=== PATIENT | female | born 1960 | race Caucasian/White ===

== ENCOUNTER 2017-09-09 20:48 | Emergency (ER) | payer BC ==
[~2017-09-09] VITALS: Ht 157.5 cm; Wt 59.3 kg
[2017-09-09 20:50] VITALS: TEMP 36.7; Ht 157.5 cm; Wt 59.3 kg
[2017-09-09] MEDS ORDERED: PROAIR HFA INH (21:00)
[2017-09-09] MEDS ORDERED: IBUP-1050 PO (21:00)
[2017-09-09] MEDS ORDERED: DIPH25CA5 PO (21:00)
[2017-09-09] MEDS ORDERED: OXYCODONE/ACETAMINOPHEN 5-325 TAB PO STA (21:07)
[2017-09-09] MEDS ORDERED: IBUPROFEN 600 MG TAB PO STA (21:07)
[2017-09-09 21:40] LABS: BASO % 0.3 %; BASO ABS # 0.03 K/uL (0-0.2); EOS % 2.2 %; EOS ABS # 0.26 K/uL (0-0.5); HEMATOCRIT 39.1 % (37-47); HEMOGLOBIN 13.6 g/dL (12.0-16.0); IG# 0.02 K/uL (0.00-0.02); LYMPH ABS # 1.86 K/uL (1.2-3.4); MEAN CELL VOLUME 84.4 fL (80-100); MEAN CORPUSCULAR HEMOGLOBIN 29.4 pg (25-34); MEAN CORPUSCULAR HGB CONC 34.8 g/dl (32-36); MEAN PLATELET VOLUME 8.9 fL (7.4-10.4); MONO % 13.6 %; MONO ABS # 1.58 K/uL (0.11-0.59); NEUT % 67.7 %; NEUT ABS # 7.86 K/uL (1.4-6.5); PLATELET COUNT 308 K/uL (130-400); RED CELL DISTRIBUTION WIDTH CV 13.9 % (11.5-14.5); RED CELL DISTRIBUTION WIDTH SD 42.8 fL (36.4-46.3); WHITE BLOOD COUNT 11.61 K/uL (4.8-10.8)
[2017-09-09] MEDS ORDERED: XYLOCAINE 1%/SOD BICARB 20 ML VIAL INFIL ONE (21:45)
--- NOTE | 2017-09-09 21:47 | EMERGENCY ROOM VISIT NOTE ---
History First contact with patient: 20:58 Chief Complaint: KNEEPAIN Stated Complaint: RT KNEE SWELLING History of Present Illness The patient is a 56 year old female who presents to the Emergency Room with complaints of severe pain and swelling of the right knee for the last 2 weeks. The patient remembers standing up from the bed and feeling a small pop. She has had some discomfort since. It did not swell right away. Patient has tried ibuprofen with minimal relief of the pain. She denies any previous injury to the knee. She has pain with any movement and weightbearing. No fever or chills. No insect bites. She denies any other joint pain. Review of Systems 10 system review performed and negative unless noted in HPI or below Past Medical/Surgical History Seasonal allergies Social History Smoking Status: Current Every Day Smoker Current/Historical Medications Scheduled Diphenhydramine Hcl (Benadryl), 25 MG PO HS Doxycycline (Monohydrate) (Doxycycline), 1 TAB PO BID Ondasetron Odt (Zofran Odt), 4 MG SL Q6H Scheduled PRN Ibuprofen (Advil), 600 MG PO Q4 PRN for Pain Oxycodone/Acetaminophen 5MG/325MG (Percocet 5MG/325MG), 1-2 TABS PO Q4H PRN for Pain [Proair Hfa], 2 PUFF INH Q4 PRN for SOB/Wheezing Physical Exam Vital Signs Date Time Temp Pulse Resp B/P (MAP) Pulse Ox O2 Delivery O2 Flow Rate FiO2 09/10/17 00:18 82 20 117/69 94 Room Air 09/09/17 23:18 87 20 103/53 95 Room Air 09/09/17 20:50 36.7 113 20 132/70 97 Room Air Physical Exam VITALS: Vitals are noted on the nurse's note and reviewed by myself. Vital signs stable. GENERAL: 56-year-old female, in no acute distress, nondiaphoretic, well- developed well-nourished. SKIN: The skin was intact. HEAD: Normocephalic atraumatic. NECK: Supple, trachea midline, HEART: Regular rate and rhythm without murmurs gallops or rubs. LUNGS: Clear to auscultation bilaterally without wheezes, rales or rhonchi. No accessory muscle use. MUSCULOSKELETAL: RIGHT LOWER EXTREMITY: Diffuse edema surrounding the right knee. Pain with flexion beyond 45. The patient is unable to completely extend. She is able to raise the leg off the bed. Patellar tendon is intact. Mild warmth noted diffusely. No erythema. No breaks in the skin. NEURO: Patient was alert and oriented to person place and time. Normal sensation to touch. No focal neurological deficits. Medical Decision & Procedures ER Provider Diagnostic Interpretation: R knee xray IMPRESSION: Soft tissue swelling and a moderate knee effusion. No fractures. Electronically signed by: Cory Berkowitz M.D. 09/09/2017 10:38 PM IMPRESSION: No DVT within the right lower extremity Electronically signed by: Cory Berkowitz M.D. 09/09/2017 11:03 PM Dictated Date/Time: 09/09/2017 11:02 PM R leg US Laboratory Results 09/09/17 21:31 Red Blood Count 4.63, Mean Corpuscular Volume 84.4, Mean Corpuscular Hemoglobin 29.4, Mean Corpuscular Hemoglobin Concent 34.8, Mean Platelet Volume 8.9, Neutrophils (%) (Auto) 67.7, Lymphocytes (%) (Auto) 16.0, Monocytes (%) (Auto) 13.6, Eosinophils (%) (Auto) 2.2, Basophils (%) (Auto) 0.3, Neutrophils # (Auto ) 7.86, Lymphocytes # (Auto) 1.86, Monocytes # (Auto) 1.58, Eosinophils # (Auto ) 0.26, Basophils # (Auto) 0.03 09/09/17 21:31 Test 09/09/17 21:31 09/09/17 22:20 White Blood Count 11.61 K/uL (4.8-10.8) Red Blood Count 4.63 M/uL (4.2-5.4) Hemoglobin 13.6 g/dL (12.0-16.0) Hematocrit 39.1 % (37-47) Mean Corpuscular Volume 84.4 fL (80-100) Mean Corpuscular Hemoglobin 29.4 pg (25-34) Mean Corpuscular Hemoglobin Concent 34.8 g/dl (32-36) Platelet Count 308 K/uL (130-400) Mean Platelet Volume 8.9 fL (7.4-10.4) Neutrophils (%) (Auto) 67.7 % Lymphocytes (%) (Auto) 16.0 % Monocytes (%) (Auto) 13.6 % Eosinophils (%) (Auto) 2.2 % Basophils (%) (Auto) 0.3 % Neutrophils # (Auto) 7.86 K/uL (1.4-6.5) Lymphocytes # (Auto) 1.86 K/uL (1.2-3.4) Monocytes # (Auto) 1.58 K/uL (0.11-0.59) Eosinophils # (Auto) 0.26 K/uL (0-0.5) Basophils # (Auto) 0.03 K/uL (0-0.2) RDW Standard Deviation 42.8 fL (36.4-46.3) RDW Coefficient of Variation 13.9 % (11.5-14.5) Immature Granulocyte % (Auto) 0.2 % Immature Granulocyte # (Auto) 0.02 K/uL (0.00-0.02) Erythrocyte Sedimentation Rate 46 mm/hr (0-21) Anion Gap 5.0 mmol/L (3-11) Est Creatinine Clear Calc Drug Dose 71.0 ml/min Estimated GFR () 112.3 Estimated GFR (Non- 96.9 BUN/Creatinine Ratio 15.7 (10-20) Uric Acid 2.4 mg/dl (2.6-7.2) Calcium Level 8.5 mg/dl (8.5-10.1) C-Reactive Protein 7.25 mg/dl (0-0.29) Procalcitonin 0.09 ng/ml (0-0.5) Lyme Disease IgG Antibody POS (NEG) Synovial Fluid Source KNEE Synovial Fluid Color HILLARY Synovial Fluid Appearance CLOUDY Synovial Fluid WBC 54626 /uL (0-200) Synovial Fluid RBC 78767 /uL Synovial Fluid Polynuclear WBCs % 89.0 % Synovial Fluid Mononuclear WBCs % 11.0 % Synovial Fluid Glucose 51 mg/dl Synovial Fluid Total Protein 4 g/dl Synovial Fluid Uric Acid 2.7 mg/dl Medications Administered Medications (Trade) Dose Ordered Sig/Levi Route Start Time Stop Time Status Last Admin Dose Admin Oxycodone/ Acetaminophen (Percocet 5-325mg Tab) 1 tab NOW STAT PO 09/09/17 21:07 09/09/17 21:10 DC 09/09/17 21:52 1 TAB Ibuprofen (Motrin Tab) 600 mg ONE STAT PO 09/09/17 21:07 09/09/17 21:10 DC 09/09/17 21:52 600 MG Ceftriaxone Sodium (Rocephin Inj) 1 gm NOW STAT IV 09/09/17 23:30 09/09/17 23:31 DC 09/09/17 23:46 1 GM Morphine Sulfate (MoRPHine SULFATE INJ) 4 mg ONE STAT IV 09/09/17 23:30 09/09/17 23:31 DC 09/09/17 23:45 4 MG Procedure Procedure: Knee effusion, arthrocentesis I did discuss the risks and benefits of the procedure with the patient. They have consented. The right knee was prepped with Betadine in a sterile fashion. 2 mL of 1% lidocaine was injected to the medial superior margin of the patella. Approximately 30 mL of a turbid straw-colored fluid was aspirated. Patient's knee was cleansed and dressed with a Band-Aid. She tolerated the procedure well. ED Course Patient was seen and examined Vital signs including blood pressure were reviewed medications list was verified with patient Labs were obtained, and a saline lock was established The patient was medicated with Percocet and ibuprofen. An arthrocentesis of the right knee was performed. Please see my procedure note. Upon reassessment, the patient was still complaining of pain. She was medicated with 4 mg of morphine IV. We discussed her workup. She voiced understanding. Patient was given 1 dose of ceftriaxone I reviewed discharge instructions the patient. They voiced understanding and had no further questions. Medical Decision Differential diagnosis: Lyme arthritis, septic joint, hemarthrosis, ligamentous injury, gout, rheumatoid arthritis This patient is a 56-year-old female that presents to the emergency department with severe right knee pain and swelling for the last 2 weeks without any significant injury. On exam, she was significantly swollen. There was any effusion present. Workup reveals mild leukocytosis. She also tested IgG Lyme positive. She has had tick bites in the past. It is possible that this is Lyme arthritis. I performed an arthrocentesis at the bedside. Cultures were taken. The patient was started on Rocephin in the emergency department. She will be sent home with a 28 day course of doxycycline. I urged her the importance of orthopedic and primary care follow-up. She voiced understanding and is in agreement. She will return with any new or worsening symptoms. This chart was completed in part utilizing [employer] Speech Voice Recognition software. Attempts were made to minimize the grammatical errors, random word insertions, pronoun errors and incomplete sentences. Any formal questions or concerns about the content, text or information contained within the body of this dictation should be directly addressed to the provider for clarification. Medication Reconcilliation Current Medication List: was personally reviewed by me Blood Pressure Screening Patient's blood pressure: Normal blood pressure Impression Primary Impression: Lyme arthritis Departure Information Dispostion Home / Self-Care Condition GOOD Prescriptions Oxycodone/Acetaminophen 5MG/325MG (PERCOCET 5MG/325MG) Tab 1-2 TABS PO Q4H Y for Pain, #20 TAB For Initial Treatment Prov: Maggi Min PA-C 09/09/17 Doxycycline (Monohydrate) (Doxycycline) 100 Mg Cap 1 TAB PO BID for 28 Days, #56 TAB Prov: Maggi Min PA-C 09/09/17 Ondasetron Odt (ZOFRAN ODT) 4 Mg Tab 4 MG SL Q6H for Nausea, #30 TAB Prov: Maggi Min PA-C 09/09/17 Referrals Destiny Field D.O. (PCP) Brett Powell, DO Patient Instructions ED Lyme Disease, [facility] Additional Instructions You have been evaluated in the emergency department for knee pain and swelling. It is possible that this is due to Lyme disease causing arthritis. Please rest, ice and elevate the knee. Use the knee brace for support. Use crutches for minimal weightbearing Please take the entire course of antibiotics. Take this medication with food. Zofran every 6 hours as needed for nausea Ibuprofen 600 mg every 6 hours Percocet 1-2 tabs every 4 hours for severe pain. Do not drink alcohol or drive while taking this medication. This may be taken with ibuprofen, but avoid Tylenol. It is very important to follow-up with your primary care physician in addition to orthopedics. A number has been provided. Please do not hesitate to return to the emergency department with any new, worsening or concerning symptoms; especially, fever, severe headache, weakness, numbness or tingling It has been a pleasure participating in your care this evening Work Instructions Return To Work: 1 week
[2017-09-09 21:56] LABS: CALCIUM 8.5 mg/dl (8.5-10.1); CREATININE 0.7 mg/dl (0.60-1.20); POTASSIUM 3.5 mmol/L (3.5-5.1); URIC ACID 2.4 mg/dl (2.6-7.2)
--- NOTE | 2017-09-09 22:36 | EMERGENCY ROOM VISIT NOTE ---
ED Visit Note First contact with patient: 20:58 The patient was seen and examined with Maggi Min PA-C. I agree with the history, physical and findings. Please see the note for disposition and details.
--- NOTE | 2017-09-09 22:39 | DIAGNOSTIC IMAGING REPORT ---
RIGHT KNEE 3 VIEWS HISTORY: R knee pain, swelling COMPARISON: None. FINDINGS: There is no fracture or dislocation. Mild soft tissue swelling throughout the right knee. Moderate joint effusion. No radiopaque foreign bodies. IMPRESSION: Soft tissue swelling and a moderate knee effusion. No fractures. Electronically signed by: Cory Berkowitz M.D. 09/09/2017 10:38 PM Dictated Date/Time: 09/09/2017 10:37 PM
--- NOTE | 2017-09-09 23:04 | DIAGNOSTIC IMAGING REPORT ---
RIGHT LOWER EXTREMITY VENOUS DOPPLER HISTORY: Right leg pain. COMPARISON STUDY: None. FINDINGS: There is normal compressibility, flow, and augmentation within the right lower extremity deep venous system. IMPRESSION: No DVT within the right lower extremity Electronically signed by: Cory Berkowitz M.D. 09/09/2017 11:03 PM Dictated Date/Time: 09/09/2017 11:02 PM
[2017-09-09] MEDS ORDERED: CEFTRIAXONE SOD INJ 1 GM ADDVIAL IV STA (23:30)
[2017-09-09] MEDS ORDERED: MoRPHine SULFATE 4 MG/ML 1 ML CARP\\VIAL IV STA (23:30)
[2017-09-09] MEDS ORDERED: ONDA4TAB10 SL (23:50)
[2017-09-09] MEDS ORDERED: OXYC-57 PO (23:50)
[2017-09-09] MEDS ORDERED: DOXY-300 PO (23:50)
[2017-09-10 00:18] VITALS: BP 117/69; PULSE 82; O2SAT 94
== END 2017-09-10 00:20 | disposition home or self-care (01) ==
LOC: C.EDB 20:51 → C.EDD 09-10 00:20
DX: A69.23 Arthritis due to Lyme disease (principal); F17.200 Nicotine dependence, unspecified, uncomplicated; Z79.899 Other long term (current) drug therapy